=== PATIENT | female | born 1985 | race Caucasian/White ===

== ENCOUNTER 2019-12-14 00:02 | Inpatient (IN) | payer OTHER ==
[~2019-12-14] VITALS: Ht 162.6 cm; Wt 80.3 kg
--- OUTSIDE RECORDS SUMMARY | ~2019-12-14 | XMS | Encounter Summary ---
Demographics + + + | Address | [address] | | | [place] [address] | + + + | Home Phone | | + + + | Preferred Language | Unknown | + + + | Marital Status | | + + + | Shinto Affiliation | Unknown | + + + | Race | Unknown | + + + | Ethnic Group | Unknown | + + + Author + + + | Author | [facility] | | | and [place] | + + + | Organization | [facility] | | | and [place] | + + + | Address | Unknown | + + + | Phone | Unavailable | + + + Support + + +---------+ + | Name | Relationship | Address | Phone | + + +---------+ + | Bina Sierra | ECON | Unknown | | + + +---------+ + Care Team Providers + +------+ + | Care Tapper Balance Wheel Screw Hole Name | Role | Phone | + +------+ + PCP | Unavailable | + +------+ + Encounter Details +--------+ + + + + | Date | Type | Department | Care Team | Description | +--------+ + + + + | 09/03/ | Hospital | [facility] | Diana Cruz MD | | | 2010 | Encounter | [facility] | [address] | | | | | [place] | [place], [place] | | | | | [place], [place] | [address] | | | | | [address] | | | | | | [phone] | | | +--------+ + + + + Social History + +-------+ +--------+------+ | Tobacco Use | Types | Packs/Day | Years | Date | | | | | Used | | + +-------+ +--------+------+ | Never Assessed | | | | | + +-------+ +--------+------+ + + + | Sex Assigned at | Date Recorded | | | | + + + | Not on file | | + + + documented as of this encounter Plan of Treatment Not on filedocumented as of this encounter Visit Diagnoses Not on filedocumented in this encounter"
--- OUTSIDE RECORDS SUMMARY | ~2019-12-14 | XMS | Encounter Summary ---
Demographics + + + | Address | [address] | | | [place] [address] | + + + | Home Phone | | + + + | Preferred Language | Unknown | + + + | Marital Status | | + + + | Protestant Affiliation | Unknown | + + + | Race | Unknown | + + + | Ethnic Group | Unknown | + + + Author + + + | Author | [facility] | | | and [place] | + + + | Organization | [facility] | | | [...] Team Providers + +------+ + | Care Bartender Name | Role | Phone | + +------+ + PCP | Unavailable | + +------+ + Reason for Visit + +--------+ + | Reason | Onset | Comments | | | Date | | + +--------+ + | Medication Refill | 02/27/ | | | | 2017 | | + +--------+ + Encounter Details +--------+--------+ + + + | Date | Type | Department | Care Team | Description | +--------+--------+ + + + | 02/27/ | Refill | [facility] | Irlanda Moise | Medication Refill | | 2016 | | [facility] | [address] | | | | | MED[address] | [address] [facility], | | | | | [facility] [facility], | [place] [address] | | | | | [place] [address] | [phone] | | | | | [phone] | | | +--------+--------+ + + + Social History + +-------+ +--------+------+ | Tobacco Use | Types | Packs/Day | Years | Date | | | | | Used | | + +-------+ +--------+------+ | Never Smoker | | | | | + +-------+ +--------+------+ + + + | Sex Assigned at | Date Recorded | | | | + + + | Not on file | | + + + documented as of this encounter Miscellaneous Notes Telephone Encounter - Rosemarie Doherty NP - 02/27/2017 1:29 PM PDTCan refill for #12. Electr onically signed by Rosemarie Doherty NP at 02/27/2017 1:29 PM PDTTelephone Encounter - Kolby Garcia - 02/27/2017 1:03 PM PDTSunatriptan, pt just received 9 pills due to her insurance and pt does not have insurance and is going to pay for these out of pocket. Pt was asking i f she could have more than 9 pills, pt uses [facility] in [facility] call/robin documented i n this encounter Plan of Treatment Not on filedocumented as of this encounter Visit Diagnoses Not on filedocumented in this encounter"
--- OUTSIDE RECORDS SUMMARY | ~2019-12-14 | XMS | Encounter Summary ---
Demographics + + + | Address | [address] | | | [place] [address] | + + + | Home Phone | | + + + | Preferred Language | Unknown | + + + | Marital Status | | + + + | Adventism Affiliation | Unknown | + + + | Race | Unknown | + + + | Ethnic Group | Unknown | + + + Author + + + | Author | [facility] | | | and [place] | + + + | Organization | [facility] | | | [...] Team Providers + +------+ + | Care Air Conditioner Installer Helper Name | Role | Phone | + +------+ + PCP | Unavailable | + +------+ + Encounter Details +--------+ + + + + | Date | Type | Department | Care Team | Description | +--------+ + + + + | 11/28/ | Hospital | [facility] | Conversion | | | 2011 | Encounter | [facility] | Transaction, | | | | | MED[facility] | Provider Unknown | | | | | [address] [facility], | | | | | | [place] [address] | (Fax) | | | | | [phone] | | | +--------+ + + + [...]
--- OUTSIDE RECORDS SUMMARY | ~2019-12-14 | XMS | Encounter Summary ---
Demographics + + + | Address | [address] | | | [place] [address] | + + + | Home Phone | | + + + | Preferred Language | Unknown | + + + | Marital Status | | + + + | Mandaeism Affiliation | Unknown | + + + | Race | Unknown | + + + | Ethnic Group | Unknown | + + + Author + + + | Author | [facility] | | | and [place] | + + + | Organization | [facility] | | | and [...] Team Providers + +------+ + | Care Tea Room Manager Name | Role | Phone | + +------+ + PCP | Unavailable | + +------+ + Encounter Details +--------+ + + + + | Date | Type | Department | Care Team | Description | +--------+ + + + + | 06/30/ | Hospital | [facility] | Conversion | | | 2009 | Encounter | [facility] | Transaction, | | | | | [address]ENTER [address] | Provider Unknown | | | | | [address] [place], [place] | | | | | | [address] | (Fax) | | | | | [phone] | | | +--------+ + + + [...]
--- OUTSIDE RECORDS SUMMARY | ~2019-12-14 | XMS | Encounter Summary ---
Demographics + + + | Address | [address] | | | [place] [address] | + + + | Home Phone | | + + + | Preferred Language | Unknown | + + + | Marital Status | | + + + | Hoahaoism Affiliation | Unknown | + + + | Race | Unknown | + + + | Ethnic Group | Unknown | + + + Author + + + | Author | [facility] | | | and [place] | + + + | Organization | [facility] | | | [...] Team Providers + +------+ + | Care Financial Aid Director Name | Role | Phone | + +------+ + PCP | Unavailable | + +------+ + Encounter Details +--------+ + + + + | Date | Type | Department | Care Team | Description | +--------+ + + + + | 05/03/ | Hospital | [facility] | Conversion | Chronic back pain | | 2014 | Encounter | [facility] | Transaction, | | | | | [address] | Provider Unknown | | | | | [address] [place], [place] | [phone] | | | | | [address] | | | | | | [phone] | | | +--------+ + + + [...] + + documented as of this encounter Medications at Time of Discharge + + + +---------+ + + | Medication | Sig | Dispensed | Refills | Start | End Date | | | | | | Date | | + + + +---------+ + + | DULoxetine | ORAL; 1 capsule | | 0 | 04/04/20 | | | (CYMBALTA) [address] | daily for one week, | | | 15 | | | capsule | then 1 capsule QOD | | | | | | | for one week, then | | | | | | | d/c | | | | | + + + +---------+ + + | gabapentin | 3 Capsule twice | | 0 | 11/19/19 | | | (NEURONTIN) 300 mg | daily ORAL | | | 15 | | | capsule | | | | | | + + + +---------+ + + | ibuprofen | 1 Tablet 3 times a | | 0 | 01/18/20 | | | (ADVIL,MOTRIN) 800 | day PRN ORAL | | | 15 | | | MG tablet | | | | | | + + + +---------+ + + | methocarbamol | 1 Tablet every 6 | | 0 | 02/25/20 | | | (METHOCARBAMOL) 750 | hours PRN ORAL | | | 15 | | | mg tablet | | | | | | + + + +---------+ + + | Multiple Vitamin | 1 Tablet QD ORAL | | 0 | 08/19/19 | | | (MULTIVITAMINS PO) | | | | 14 | | + + + +---------+ + + | topiramate | ORAL; on 03/13/15 1 | | 0 | 03/14/20 | | | (TOPAMAX) 25 mg | tab at hs for 1 | | | 15 | | | tablet | week-then increase | | | | | | | by 25mg per week up | | | | | | | to 25mg in AM & 50mg | | | | | | | at hs | | | | | + + + +---------+ + + documented as of this encounter Plan of Treatment Not on filedocumented as of this encounter Procedures + +--------+ + + + | Procedure Name | Priori | Date/Time | Associated Diagnosis | Comments | | | ty | | | | + +--------+ + + + | XR LUMBAR SPINE 2 [place] | Routin | 05/03/2015 | | Results for this | | 3 VW | e | 11:56 AM | | procedure are in the | | | | PST | | results section. | + +--------+ + + + documented in this encounter Results XR Lumbar Spine 2 or 3 Vw (05/03/2015 11:56 AM PST) + + | Specimen | + + | | + + + + + | Impressions | Performed At | + + + | FINDINGS/ IMPRESSION: No acute fracture or dislocation. | | | Intervertebral disc height is preserved. Vertebral body height is | | | preserved. No instability on flexion and extension views. | | | | | + + + + + + | Narrative | Performed At | + + + | [facility] 1985 XR LUMBAR SPINE LIMITED 2-3 VIEW | | | 05/03/2015 11:56 AM INDICATION: Back pain COMPARISON: None | | | TECHNIQUE: Lumbar spine series, 3 views | | + + + + + | Procedure Note | + + | Harmeet, Rad Conversion - 12/18/2018 11:21 AM PDT [facility] | | 1985 | | XR LUMBAR SPINE LIMITED 2-3 VIEW | | 05/03/2015 11:56 AM | | | | INDICATION: Back pain | | | | COMPARISON: None | | | | TECHNIQUE: Lumbar spine series, 3 views | | | | IMPRESSION: | | FINDINGS/ IMPRESSION: | | | | No acute fracture or dislocation. | | | | Intervertebral disc height is preserved. Vertebral body height is preserved. | | | | No instability on flexion and extension views. | | | | | + + documented in this encounter Visit Diagnoses + + | Diagnosis | + + | Chronic back pain Backache, unspecified | + + documented in this encounter"
--- OUTSIDE RECORDS SUMMARY | ~2019-12-14 | XMS | Encounter Summary ---
Demographics + + + | Address | [address] | | | [place] [address] | + + + | Home Phone | | + + + | Preferred Language | Unknown | + + + | Marital Status | | + + + | Voodoo Affiliation | Unknown | + + + | Race | Unknown | + + + | Ethnic Group | Unknown | + + + Author + + + | Author | [facility] | | | and [place] | + + + | Organization | [facility] | | | and [...] Team Providers + +------+ + | Care Aerodynamics Teacher Name | Role | Phone | + +------+ + PCP | Unavailable | + +------+ + Encounter Details +--------+ + + + + | Date | Type | Department | Care Team | Description | +--------+ + + + + | 06/12/ | Hospital | [facility] | Diana Cruz MD | | | 2010 | Encounter | [facility] | [address] | | | | | [place] | [place], [place] | | | | | [place], [place] | [address] | | | | | [address] | | | | | | [phone] | | | +--------+ + + + [...]
--- OUTSIDE RECORDS SUMMARY | ~2019-12-14 | XMS | Encounter Summary ---
Demographics + + + | Address | [address] | | | [place] [address] | + + + | Home Phone | | + + + | Preferred Language | Unknown | + + + | Marital Status | | + + + | Voodoo Affiliation | Unknown | + + + | Race | Unknown | + + + | Ethnic Group | Unknown | + + + Author + + + | Author | [facility] | | | and [place] | + + + | Organization | [facility] | | | [...] Team Providers + +------+ + | Care Manager Market Name | Role | Phone | + +------+ + | Irlanda Moise MD | PCP | | + +------+ + Encounter Details +--------+ + + + + | Date | Type | Department | Care Team | Description | +--------+ + + + + | 12/14/ | Orders Only | [facility] | Provider, | | | 2019 | | [facility] GENER[facility] OP | [address] | | | | | CONVERSION [address] | [place] | | | | | [address] [place], [place] | [place] [address] | | | | | [address] | | | | | | [phone] | | | +--------+ + + + [...]
--- OUTSIDE RECORDS SUMMARY | ~2019-12-14 | XMS | Encounter Summary ---
Demographics + + + | Address | [address] | | | [place] [address] | + + + | Home Phone | | + + + | Preferred Language | Unknown | + + + | Marital Status | | + + + | Holiness Affiliation | Unknown | + + + | Race | Unknown | + + + | Ethnic Group | Unknown | + + + Author + + + | Author | [facility] | | | and [place] | + + + | Organization | [facility] | | | [...] Team Providers + +------+ + | Care Gum Maker Name | Role | Phone | + +------+ + PCP | Unavailable | + +------+ + Encounter Details +--------+ + + + + | Date | Type | Department | Care Team | Description | +--------+ + + + + | 10/28/ | Hospital | [facility] | Irlanda Moise | | | 2013 | Encounter | [facility] | [address] | | | | | [address] | [facility] [facility], | | | | | [facility], | [place] [address] | | | | | [place] [address] | [phone] | | | | | [phone] | | | +--------+ + + + [...] Tablet QD ORAL | | 0 | 04/1620 | | | (MULTIVITAMINS PO) | | | | 14 | | + + + +---------+ + + documented as of this encounter Plan of Treatment Not on filedocumented as of this encounter Visit Diagnoses Not on filedocumented in this encounter"
--- OUTSIDE RECORDS SUMMARY | ~2019-12-14 | XMS | Encounter Summary ---
Demographics + + + | Address | [address] | | | [place] [address] | + + + | Home Phone | | + + + | Preferred Language | Unknown | + + + | Marital Status | | + + + | Restorationist Affiliation | Unknown | + + + | Race | Unknown | + + + | Ethnic Group | Unknown | + + + Author + + + | Author | [facility] | | | and [place] | + + + | Organization | [facility] | | | [...] Team Providers + +------+ + | Care Electronic Wirer Name | Role | Phone | + +------+ + PCP | Unavailable | + +------+ + Encounter Details +--------+ + + + + | Date | Type | Department | Care Team | Description | +--------+ + + + + | 08/18/ | Hospital | [facility] | Irlanda Moise | | | 2013 | Encounter | [facility] | [address] | | | | | [address] | [address] [facility], | | | | | [facility] [facility], | [place] [address] | | | | | [place] [address] | [phone] | | | | | [phone] | | | +--------+ + + + [...]
--- OUTSIDE RECORDS SUMMARY | ~2019-12-14 | XMS | Encounter Summary ---
Demographics + + + | Address | [address] | | | [place] [address] | + + + | Home Phone | | + + + | Preferred Language | Unknown | + + + | Marital Status | | + + + | Faith Affiliation | Unknown | + + + | Race | Unknown | + + + | Ethnic Group | Unknown | + + + Author + + + | Author | [facility] | | | and [place] | + + + | Organization | [facility] | | | [...] Team Providers + +------+ + | Care Fashion Patternmaker Name | Role | Phone | + +------+ + PCP | Unavailable | + +------+ + Encounter Details +--------+ + + + + | Date | Type | Department | Care Team | Description | +--------+ + + + + | 06/24/ | Hospital | [facility] | Bashir Rogers | | | 2011 | Encounter | [facility]PITAL EM[facility]Y | [address] | | | | | [address] | [facility] | | | | | [address] [place], [place] | [place] [address] | | | | | [address] | [phone] | | | | | [phone] | | | +--------+ + + + [...]
--- OUTSIDE RECORDS SUMMARY | ~2019-12-14 | XMS | Encounter Summary ---
Demographics + + + | Address | [address] | | | [place] [address] | + + + | Home Phone | | + + + | Preferred Language | Unknown | + + + | Marital Status | | + + + | Lutheran Affiliation | Unknown | + + + | Race | Unknown | + + + | Ethnic Group | Unknown | + + + Author + + + | Author | [facility] | | | and [place] | + + + | Organization | [facility] | | [...] Team Providers + +------+ + | Care Vending Machine Assembler Name | Role | Phone | + +------+ + PCP | Unavailable | + +------+ + Encounter Details +--------+ + + + + | Date | Type | Department | Care Team | Description | +--------+ + + + + | 07/13/ | Hospital | [facility] | Jasmeet Wick | | | 2009 | Encounter | [facility]PITAL EM[facility] | [address] | | | | | [address] | [facility] | | | | | [address] [place], [place] | [place] [address] | | | | | [address] | [phone] | | | | | [phone] | | | +--------+ + + + [...]
--- OUTSIDE RECORDS SUMMARY | ~2019-12-14 | XMS | Encounter Summary ---
Demographics + + + | Address | [address] | | | [place] [address] | + + + | Home Phone | | + + + | Preferred Language | Unknown | + + + | Marital Status | | + + + | Tenriism Affiliation | Unknown | + + + | Race | Unknown | + + + | Ethnic Group | Unknown | + + + Author + + + | Author | [facility] | | | and [place] | + + + | Organization | [facility] | | | and [...] Team Providers + +------+ + | Care Post Partum Nurse Name | Role | Phone | + +------+ + PCP | Unavailable | + +------+ + Encounter Details +--------+ + + + + | Date | Type | Department | Care Team | Description | +--------+ + + + + | 10/12/ | Hospital | [facility] | Conversion | | | 2016 | Encounter | [facility] | Transaction, | | | | | [address] | Provider Unknown | | | | | [address] [place], [place] | [phone] | | | | | [address] | | | | | | [phone] | | | +--------+ + + + [...] + + + +---------+ + + | meloxicam (MOBIC) | Take once a day for | | 0 | 10/13/19 | | | 15 mg tablet | pain | | | 16 | | + + + +---------+ + [...] + + + +---------+ + + | zonisamide | Start 1 capsule by | | 0 | 05/04/20 | | | (ZONEGRAN) 100 mg | mouth at night x 1 | | | 16 | | | capsule | week, then 2 | | | | | | | capsules nightly. | | | | | + + + +---------+ + + documented as of this encounter Plan of Treatment Not on filedocumented as of this encounter Visit Diagnoses Not on filedocumented in this encounter"
--- OUTSIDE RECORDS SUMMARY | ~2019-12-14 | XMS | Encounter Summary ---
Demographics + + + | Address | [address] | | | [place] [address] | + + + | Home Phone | | + + + | Preferred Language | Unknown | + + + | Marital Status | | + + + | Spiritism Affiliation | Unknown | + + + | Race | Unknown | + + + | Ethnic Group | Unknown | + + + Author + + + | Author | [facility] | | | and [place] | + + + | Organization | [facility] | | [...] Team Providers + +------+ + | Care Coordinator Mining Products Name | Role | Phone | + +------+ + PCP | Unavailable | + +------+ + Encounter Details +--------+ + + + + | Date | Type | Department | Care Team | Description | +--------+ + + + + | 01/15/ | Hospital | [facility] | Adiel Slade | | | 2012 | Encounter | [facility] | [address] | | | | | MEDICAL CLIN[address] | [address] [place], [place] | | | | | [address] [place], | [address] | | | | | [place] [address] | | | | | | [phone] | | | +--------+ + + + [...]
--- OUTSIDE RECORDS SUMMARY | ~2019-12-14 | XMS | Encounter Summary ---
Demographics + + + | Address | [address] | | | [place] [address] | + + + | Home Phone | | + + + | Preferred Language | Unknown | + + + | Marital Status | | + + + | Scientologist Affiliation | Unknown | + + + [...] Team Providers + +------+ + | Care Tack Puller Name | Role | Phone | + +------+ + PCP | Unavailable | + +------+ + Encounter Details +--------+ + + + + | Date | Type | Department | Care Team | Description | +--------+ + + + + | 10/01/ | Hospital | [facility] | Irlanda Moise | | | 2013 | Encounter | [facility] | [address] | | | | | MEDICAL [address] | [facility] [facility], | | | | | [facility], | [place] [address] | | | | | [place] [address] | [phone] | | | | | [phone] | | | +--------+ + + + [...]
--- OUTSIDE RECORDS SUMMARY | ~2019-12-14 | XMS | Encounter Summary ---
Demographics + + + | Address | [address] | | | [place] [address] | + + + | Home Phone | | + + + | Preferred Language | Unknown | + + + | Marital Status | | + + + | Faith Affiliation | Unknown | + + + | Race | Unknown | + + + | Ethnic Group | Unknown | + + + Author + + + | Author | [facility] | | | and [place] | + + + | Organization | [facility] | | | and [...] Team Providers + +------+ + | Care Tongue Presser Name | Role | Phone | + +------+ + PCP | Unavailable | + +------+ + Encounter Details +--------+ + + + + | Date | Type | Department | Care Team | Description | +--------+ + + + + | 08/09/ | Hospital | [facility] | Irlanda Moise | | | 2014 | Encounter | [facility] | [address] | | | | | [address]ICAL [address] | [facility] [facility], | | | | | [facility], | [place] [address] | | | | | [place] [address] | [phone] | | | | | [phone] | | | +--------+ + + + [...]
--- OUTSIDE RECORDS SUMMARY | ~2019-12-14 | XMS | Clinical Summary ---
Demographics + + + | Address | [address] | | | [place] [address] | + + + | Home Phone | | + + + | Preferred Language | Unknown | + + + | Marital Status | | + + + | Scientologist Affiliation | Unknown | + + + | Race | Unknown | + + + | Ethnic Group | Unknown | + + + Author + + + | Author | [facility] | | | and [place] | + + + | Organization | [facility] | | | and [...] Team Providers + +------+ + | Care Clinical Professor Name | Role | Phone | + +------+ + | Irlanda Moise MD | PCP | | + +------+ + Allergies + + + + + + | Active Allergy | Reactions | Severity | Noted | Comments | | | | | Date | | + + + + + + | Cyclobenzaprine | Other (See Comments) | Low | 08/11/19 | | | | | | 10 | | + + + + + + | Duloxetine | Other (See Comments) | Low | 04/12/20 | | | | | | 15 | | + + + + + + Medications + + + +---------+------+------+-------+ | Medication | Sig | Dispensed | Refills | Star | End | Statu | | | | | | t | Date | s | | | | | | Date | | | + + + +---------+------+------+-------+ | SUMAtriptan | Take at onset of | 12 | 0 | 10/ | | Activ | | (IMITREX) 50 mg | migraine, may repeat | tablet | | 10/22 | | e | | tablet | in 2 hrs if needed | | | 17 | | | + + + +---------+------+------+-------+ | Multiple Vitamin | 1 Tablet QD ORAL | | 0 | 04/1 | | Activ | | (MULTIVITAMINS PO) | | | | 6/20 | | e | | | | | | 14 | | | + + + +---------+------+------+-------+ | citalopram | 20 mg | | 0 | | | Activ | | (CELEXA) 20 mg | | | | | | e | | tablet | | | | | | | + + + +---------+------+------+-------+ | cloNIDine | Take 1 tablet (0.1 | | 0 | 08/0 | | Activ | | (CATAPRES) 0.1 mg | mg total) by mouth 2 | | | 6/20 | | e | | tablet | times daily | | | 19 | | | + + + +---------+------+------+-------+ | DULoxetine | ORAL; 1 capsule | | 0 | 12/0 | | Activ | | (CYMBALTA) [address] | daily for one week, | | | 1/20 | | e | | capsule | then 1 capsule QOD | | | 15 | | | | | for one week, then | | | | | | | | d/c | | | | | | + + + +---------+------+------+-------+ | gabapentin | Take 1 tablet by | | 0 | 09/2 | | Activ | | (NEURONTIN) 600 MG | mouth 3 (three) | | | 6/20 | | e | | tablet | times daily. | | | 16 | | | + + + +---------+------+------+-------+ | gabapentin | 3 Capsule twice | | 0 | 07/1 | | Activ | | (NEURONTIN) 300 mg | daily ORAL | | | 7/20 | | e | | capsule | | | | 15 | | | + + + +---------+------+------+-------+ | ibuprofen | 1 Tablet 3 times a | | 0 | 09/1 | | Activ | | (ADVIL,MOTRIN) 800 | day PRN ORAL | | | 5/20 | | e | | MG tablet | | | | 15 | | | + + + +---------+------+------+-------+ | LORazepam (ATIVAN) | Take 1 tablet (1 mg | | 0 | 11/2 | | Activ | | 1 mg tablet | total) by mouth at | | | 6/20 | | e | | | bedtime as needed | | | 18 | | | | | for Anxiety | | | | | | + + + +---------+------+------+-------+ | LORazepam (ATIVAN) | Take 2 mg by mouth | | 0 | | | Activ | | 2 MG tablet | | | | | | e | + + + +---------+------+------+-------+ | meloxicam (MOBIC) | Take once a day for | | 0 | 06/1 | | Activ | | 15 mg tablet | pain | | | 0/20 | | e | | | | | | 16 | | | + + + +---------+------+------+-------+ | meloxicam (MOBIC) | Take 7.5 mg by mouth | | 0 | 11/2 | | Activ | | 7.5 mg tablet | daily | | | 20 | | e | | | | | | 18 | | | + + + +---------+------+------+-------+ | methocarbamol | 1 Tablet every 6 | | 0 | 10/2 | | Activ | | (METHOCARBAMOL) 750 | hours PRN ORAL | | | 3/20 | | e | | mg tablet | | | | 15 | | | + + + +---------+------+------+-------+ | metoprolol | Take 0.5 tablets | | 0 | 11/2 | | Activ | | tartrate (LOPRESSOR) | (12.5 mg total) by | | | 6/20 | | e | | 25 mg tablet | mouth 2 times daily | | | 18 | | | + + + +---------+------+------+-------+ | morphine (MSIR) 15 | Take 15 mg by mouth. | | 0 | | | Activ | | mg tablet | Take one tablet by | | | | | e | | | moth twice daily | | | | | | + + + +---------+------+------+-------+ | nabumetone | TAKE ONE TABLET BY | | 0 | 07/0 | | Activ | | (RELAFEN) 750 mg | MOUTH TWO TIMES A | | | 10/22 | | e | | tablet | DAY | | | 16 | | | + + + +---------+------+------+-------+ | | Take 1 tablet by | | 0 | 06/1 | | Activ | | norgestimate-ethinyl | mouth daily | | | 11/21 | | e | | estradiol | | | | 19 | | | | (ORTHO-CYCLEN) 0.25 | | | | | | | | mg-35 mcg per tablet | | | | | | | + + + +---------+------+------+-------+ | ondansetron | Take 1 tablet (4 mg | | 0 | 08/0 | | Activ | | (ZOFRAN ODT) 4 mg | total) by mouth | | | 620 | | e | | disintegrating | every 6 hours as | | | 19 | | | | tablet | needed for Nausea | | | | | | | | (For nausea or | | | | | | | | vomiting) place on | | | | | | | | the tongue. | | | | | | + + + +---------+------+------+-------+ | ondansetron | Take 4 mg by mouth 4 | | 0 | | | Activ | | (ZOFRAN) 4 mg tablet | times daily as | | | | | e | | | needed for Nausea | | | | | | + + + +---------+------+------+-------+ | | Take 1-2 tablets by | | 0 | 01/04 | | Activ | | oxyCODONE-acetaminop | mouth every 4 (four) | | | 6/ | | e | | hen (PERCOCET) | hours as needed for | | | 16 | | | | 7.5-325 mg per | Pain. | | | | | | | tablet | | | | | | | + + + +---------+------+------+-------+ | pantoprazole | Take 40 mg by mouth | | 0 | | | Activ | | (PROTONIX) 40 mg | | | | | | e | | tablet | | | | | | | + + + +---------+------+------+-------+ | topiramate | ORAL; on 03/13/15 1 | | 0 | 11 | | Activ | | (TOPAMAX) 25 mg | tab at hs for 1 | | | 0/20 | | e | | tablet | week-then increase | | | 15 | | | | | by 25mg per week up | | | | | | | | to 25mg in AM & 50mg | | | | | | | | at hs | | | | | | + + + +---------+------+------+-------+ | topiramate | Take 1 pill twice a | | 0 | 08/2 | | Activ | | (TOPAMAX) 100 mg | day. | | | 620 | | e | | tablet | | | | 16 | | | + + + +---------+------+------+-------+ | zonisamide | Start 1 capsule by | | 0 | 05/0 | | Activ | | (ZONEGRAN) 100 mg | mouth at night x 1 | | | 4/20 | | e | | capsule | week, then 2 | | | 16 | | | | | capsules nightly. | | | | | | + + + +---------+------+------+-------+ | SUMAtriptan | ORAL; TAKE AT ONSET | | 0 | 10/1 | | Activ | | (IMITREX) 50 mg | OF MIGRAINE, MAY | | | 0/20 | | e | | tablet | REPEAT IN 2 HOURS IF | | | 16 | | | | | NEEDED | | | | | | + + + +---------+------+------+-------+ | SUMAtriptan | Take 100 mg by mouth | | 0 | 02/2 | | Activ | | (IMITREX) 100 mg | | | | 0/20 | | e | | tablet | | | | 17 | | | + + + +---------+------+------+-------+ Active Problems + + + | Problem | Noted Date | + + + | Left hip pain | 08/10/2015 | + + + | Arthralgia, sacroiliac | 05/29/2015 | + + + | Tobacco use disorder | 12/02/2013 | + + + | Chronic back pain | 08/18/2013 | + + + | Migraine | 08/18/2013 | + + + | Exudative pharyngitis | 11/29/2011 | + + + Family History + + +------+ + | Medical History | Relation | Name | Comments | + + +------+ + | Fibromyalgia | Maternal | | | | | Grandmoth | | | | | er | | | + + +------+ + | Fibromyalgia | Mother | | | + + +------+ + + +------+--------+ + | Relation | Name | Status | Comments | + +------+--------+ + | Father | | Alive | | + +------+--------+ + | Maternal Grandmother | | Alive | | + +------+--------+ + | Maternal Grandmother | | | | + +------+--------+ + | Mother | | Alive | | + +------+--------+ + | Mother | | | | + +------+--------+ + Social History + +-------+ +--------+------+ | Tobacco Use | Types | Packs/Day | Years | Date | | | | | Used | | + +-------+ +--------+------+ | Current Every Day | | 0.1 | | | | Smoker | | | | | + +-------+ +--------+------+ + +---+---+---+ | Smokeless Tobacco: | | | | | Never Used | | | | + +---+---+---+ + + +---------+ + | Alcohol Use | Drinks/Week | oz/Week | Comments | + + +---------+ + | Not Currently | | | | + + +---------+ + + + + | Sex Assigned at | Date Recorded | | | | + + + | Not on file | | + + + Last Filed Vital Signs + + + + + | Vital Sign | Reading | Time Taken | Comments | + + + + + | Blood Pressure | 114/65 | 02/18/2019 4:36 PM | | | | | PDT | | + + + + + | Pulse | 82 | 02/18/2019 4:36 PM | | | | | PDT | | + + + + + | Temperature | 37.4 C (99.4 F) | 02/18/2019 4:36 PM | | | | | PDT | | + + + + + | Respiratory Rate | 18 | 02/18/2019 4:36 PM | | | | | PDT | | + + + + + | Oxygen Saturation | 99% | 02/18/2019 4:36 PM | | | | | PDT | | + + + + + | Inhaled Oxygen | - | - | | | Concentration | | | | + + + + + | Weight | 61.2 kg (135 lb) | 02/18/2019 4:36 PM | | | | | PDT | | + + + + + | Height | 162.6 cm (5' 4") | 09/26/2016 11:50 AM | | | | | PDT | | + + + + + | Body Mass Index | 23.17 | 09/26/2016 11:50 AM | | | | | PDT | | + + + + + Plan of Treatment + + + + + | Health Maintenance | Due Date | Last | Comments | | | | Done | | + + + + + | Hepatitis C | | | | | Screening | 4 | | | + + + + + | Medication | | | | | Management | 4 | | | + + + + + | Primary Care | | | | | Outreach (Low Risk) | 4 | | | + + + + + | Vaccine: | | | | | Pneumococcal 19-64 | 0 | | | | (1 of 1 - PPSV23) | | | | + + + + + | Vaccine: | | 04/27/20 | | | Dtap/Tdap/Td (5 - | 5 | 18, | | | Tdap) | | 01/04/19 | | | | | 88, | | | | | 01/31/19 | | | | | 86, | | | | | Addition | | | | | al | | | | | history | | | | | exists | | + + + + + | Cervical Cancer | | | | | Screening (Pap) | 4 | | | + + + + + | Med Mgmt: BUN | | 08/10/19 | | | | 6 | 15 | | + + + + + | Med Mgmt: Cr | | 08/10/19 | | | | 6 | 15 | | + + + + + | Med Mgmt: eGFR | | 08/10/19 | | | | 6 | 15 | | + + + + + | Vaccine: Influenza | | | | | (#1) | 0 | | | + + + + + Results Not on filefrom Last 3 Months Insurance + +--------+ +--------+ +---------+--------+ | Payer | Benefi | Subscriber | Effect | Phone | Address | Type | | | t Plan | ID | alonzo | | | | | | / | | Dates | | | | | | Group | | | | | | + +--------+ +--------+ +---------+--------+ | [employer] | [employer] | [id number] | 02/18/ | [phone] | | Medica | | MEDICAID HMO | HEALTH | | 2019-P | 1 | | id | | | MDCD | | resent | | | | | | [place] | | | | | | + +--------+ +--------+ +---------+--------+ + +--------+ +--------+ + + | Guarantor Name | Accoun | Relation to | Date | Phone | Billing Address | | | t Type | Patient | of | | | | | | | | | | + +--------+ +--------+ + + | Valentina Sierra | Person | Self | [birth year] | [address] | | | al/Fam | | 1986 | [phone] | [place] [address] | | | jelani | | | 0 (Home) | | + +--------+ +--------+ + + Advance Directives + + + + + | Type | Date Recorded | Patient | Explanation | | | | Solo Truck Driver | | + + + + + | Power of | | | | | Cyber Special Agent | | | | + + + + + | Advance | 02/18/2019 | | | | Directive | 5:34 PM | | | + + + + +
--- OUTSIDE RECORDS SUMMARY | ~2019-12-14 | XMS | Encounter Summary ---
Demographics + + + | Address | [address] | | | [place] [address] | + + + | Home Phone | | + + + | Preferred Language | Unknown | + + + | Marital Status | | + + + | Bahai Affiliation | Unknown | + + + | Race | Unknown | + + + | Ethnic Group | Unknown | + + + Author + + + | Author | [facility] | | | and [place] | + + + | Organization | [facility] | | | [...] Team Providers + +------+ + | Care Networks Computer Consultant Name | Role | Phone | + +------+ + | Irlanda Moise MD | PCP | | + +------+ + Reason for Visit +--------+--------+ + | Reason | Onset | Comments | | | Date | | +--------+--------+ + | Letter | 03/12/ | | | | 2019 | | +--------+--------+ + Encounter Details +--------+ + + + + | Date | Type | Department | Care Team | Description | +--------+ + + + + | 03/12/ | Telephone | [facility] | Jose Maria Irlanda | Letter | | 2019 | | [facility] | MD [address] | | | | | [facility] [address] [place], | | | | | [address] [facility], | [place] [address] | | | | | [place] [address] | [phone] | | | | | [phone] | | | +--------+ + + + [...] this encounter Miscellaneous Notes Telephone Encounter - Verónica Aguilar LPN - 03/12/2019 4:18 PM PSTPatient notified, no letter until she reestablishes as a patient. Verónica Aguilar LPN elephone Encount edgar - Irlanda Moise MD - 03/12/2019 3:59 PM PSTAbsolutely not. Will need to be seen, and since it's been 4 years, they'll probably make her establish like a new patient (longer wait). elephone Encounter - Verónica Aguilar LPN - 03/12/2019 3:08 PM PSTYou last saw this patient 08-09-14, can you write the letter for deaf teacher dog ? elephone Encounter - Rika Chavez - 03/12/2019 2:33 PM PSTPatient is requesting an updated letter stating she can have her dog in her duplex. Call if any questions otherwise mail to patient at: [address] [address] Call if any questions Rika Chavez documented in this encou nter Plan of Treatment Not on filedocumented as of this encounter Visit Diagnoses Not on filedocumented in this encounter"
--- OUTSIDE RECORDS SUMMARY | ~2019-12-14 | XMS | Encounter Summary ---
Demographics + + + | Address | [address] | | | [place] [address] | + + + | Home Phone | | + + + | Preferred Language | Unknown | + + + | Marital Status | | + + + | Baptist Affiliation | Unknown | + + + | Race | Unknown | + + + | Ethnic Group | Unknown | + + + Author + + + | Author | [facility] | | | and [place] | + + + | Organization | [facility] | | | [...] Team Providers + +------+ + | Care Curriculum Assistant Principal Name | Role | Phone | + +------+ + PCP | Unavailable | + +------+ + Encounter Details +--------+ + + + + | Date | Type | Department | Care Team | Description | +--------+ + + + + | 09/05/ | Hospital | [facility] | Conversion | | | 2016 | Encounter | [facility] | Transaction, | | | | | [address] | Provider Unknown | | | | | [address] [place], [place] | [phone] | | | | | [address] | | | | | | [phone] | | | +--------+ + + + [...]
--- OUTSIDE RECORDS SUMMARY | ~2019-12-14 | XMS | Encounter Summary ---
Demographics + + + | Address | [address] | | | [place] [address] | + + + | Home Phone | | + + + | Preferred Language | Unknown | + + + | Marital Status | | + + + | Uatsdin Affiliation | Unknown | + + + | Race | Unknown | + + + | Ethnic Group | Unknown | + + + Author + + + | Author | [facility] | | | and [place] | + + + | Organization | [facility] | | | and [place] | + + + | Address | Unknown | + + + | Phone | Unavailable | + + + Support + + +---------+ + | Name | Relationship | Address | Phone | + + +---------+ + | Bina Seirra | ECON | Unknown | | + + +---------+ + Care Team Providers + +------+ + | Care Sledger Name | Role | Phone | + +------+ + PCP | Unavailable | + +------+ + Encounter Details +--------+ + + + + | Date | Type | Department | Care Team | Description | +--------+ + + + + | 08/18/ | Hospital | [facility] | Irlanda Moise | | | 2013 | Encounter | [facility] X[facility] [address] | [address] | | | | | [address] | [address] [facility], | | | | | [facility], [place] | [place] [address] | | | | | [address] | [phone] | | | | | [phone] | | | +--------+ + + + [...]
--- OUTSIDE RECORDS SUMMARY | ~2019-12-14 | XMS | Encounter Summary ---
Demographics + + + | Address | [address] | | | [place] [address] | + + + | Home Phone | | + + + | Preferred Language | Unknown | + + + | Marital Status | | + + + | Pentecostalism Affiliation | Unknown | + + + | Race | Unknown | + + + | Ethnic Group | Unknown | + + + Author + + + | Author | [facility] | | | and [place] | + + + | Organization | [facility] | | | [...] Team Providers + +------+ + | Care Booth Cleaner Name | Role | Phone | + +------+ + PCP | Unavailable | + +------+ + Encounter Details +--------+ + + + + | Date | Type | Department | Care Team | Description | +--------+ + + + + | 08/07/ | Hospital | [facility] | Diana Cruz MD | | | 2010 | Encounter | HOSPITAL LABORATORY | [address] | | | | | [address] | [place], [place] | | | | | [place], [place] | [address] | | | | | [address] | | | | | | [phone] | | | +--------+ + + + [...]
--- OUTSIDE RECORDS SUMMARY | ~2019-12-14 | XMS | Encounter Summary ---
Demographics + + + | Address | [address] | | | [place] [address] | + + + | Home Phone | | + + + | Preferred Language | Unknown | + + + | Marital Status | | + + + | Oriental Orthodox Affiliation | Unknown | + + + | Race | Unknown | + + + | Ethnic Group | Unknown | + + + Author + + + | Author | [facility] | | | and [place] | + + + | Organization | [facility] | | | [...] Team Providers + +------+ + | Care Agent Telegrapher Name | Role | Phone | + +------+ + PCP | Unavailable | + +------+ + Encounter Details +--------+ + + + + | Date | Type | Department | Care Team | Description | +--------+ + + + + | 05/15/ | Hospital | [facility] | Diana Cruz MD | | | 2010 | Encounter | HOSPITAL LAB[facility]ATORY | [address] | | | | | [address] | [place], [place] | | | | | [place], [place] | [address] | | | | | [address] | | | | | | [phone] | | | +--------+ + + + [...]
--- OUTSIDE RECORDS SUMMARY | ~2019-12-14 | XMS | Encounter Summary ---
Demographics + + + | Address | [address] | | | [place] [address] | + + + | Home Phone | | + + + | Preferred Language | Unknown | + + + | Marital Status | | + + + | Mormonism Affiliation | Unknown | + + + [...] Team Providers + +------+ + | Care District Scout Executive Name | Role | Phone | + +------+ + PCP | Unavailable | + +------+ + Encounter Details +--------+ + + + + | Date | Type | Department | Care Team | Description | +--------+ + + + + | 08/08/ | Hospital | [facility] | Conversion | | | 2009 | Encounter | HOSPITAL EMERGENCY | Transaction, | | | | | CENTER [address] | Provider Unknown | | | | | [address] [place], [place] | | | | | | [address] | (Fax) | | | | | [phone] | | | +--------+ + + + [...]
--- OUTSIDE RECORDS SUMMARY | ~2019-12-14 | XMS | Encounter Summary ---
Demographics + + + | Address | [address] | | | [place] [address] | + + + | Home Phone | | + + + | Preferred Language | Unknown | + + + | Marital Status | | + + + | Taoist Affiliation | Unknown | + + + | Race | Unknown | + + + | Ethnic Group | Unknown | + + + Author + + + | Author | [facility] | | | and [place] | + + + | Organization | [facility] | | | [...] Team Providers + +------+ + | Care Supervisor Order Takers Name | Role | Phone | + +------+ + PCP | Unavailable | + +------+ + Encounter Details +--------+ + + + + | Date | Type | Department | Care Team | Description | +--------+ + + + + | 08/18/ | Hospital | [facility] | Diana Cruz MD | | | 2009 | Encounter | [facility] X[facility] | [address] | | | | | [address] | [place], [place] | | | | | [place], [place] | [address] | | | | | [address] | | | | | | [phone] | | | +--------+ + + + [...]
--- OUTSIDE RECORDS SUMMARY | ~2019-12-14 | XMS | Encounter Summary ---
Demographics + + + | Address | [address] | | | [place] [address] | + + + | Home Phone | | + + + | Preferred Language | Unknown | + + + | Marital Status | | + + + | Hinduism Affiliation | Unknown | + + + [...] Team Providers + +------+ + | Care Production Metal Sprayer Name | Role | Phone | + +------+ + PCP | Unavailable | + +------+ + Encounter Details +--------+ + + + + | Date | Type | Department | Care Team | Description | +--------+ + + + + | 07/01/ | Hospital | [facility] | [facility], | | | 2011 | Encounter | [facility] | [address], | | | | | [address] | [address] [place], [place] | | | | | [place], [place] | [address] | | | | | [address] | [phone] | | | | | [phone] | | | +--------+ + + + [...]
--- OUTSIDE RECORDS SUMMARY | ~2019-12-14 | XMS | Encounter Summary ---
Demographics + + + | Address | [address] | | | [place] [address] | + + + | Home Phone | | + + + | Preferred Language | Unknown | + + + | Marital Status | | + + + | Restoration Affiliation | Unknown | + + + | Race | Unknown | + + + | Ethnic Group | Unknown | + + + Author + + + | Author | [facility] | | | and [place] | + + + | Organization | [facility] | | | [...] Team Providers + +------+ + | Care Printing Machinist Name | Role | Phone | + +------+ + PCP | Unavailable | + +------+ + Encounter Details +--------+ + + + + | Date | Type | Department | Care Team | Description | +--------+ + + + + | 09/26/ | Hospital | [facility] | Diana Cruz MD | | | 2010 | Encounter | HOSPITAL OBSTETRICS | [address] | | | | | [address] | [place], [place] | | | | | [place], [place] | [address] | | | | | [address] | | | | | | [phone] | | | +--------+ + + + [...] + + documented as of this encounter Progress Notes Diana Cruz MD - 09/26/2010 1:54 PM [facility] Dictating Practitioner: DIANA CRUZ MD Patient Name: PARISH NAVARRETE Patient Date of : 1985 Visit Number: [id number] PROCEDURE NOTE DATE OF SERVICE: September 27, 2010. PROCEDURE PERFORMED: Nonstress test. CHIEF COMPLAINT: Possible rupture of membranes. HISTORY OF PRESENT ILLNESS: This patient is a 24-year-old female, 3, para 2, who presents at 35 weeks gestation with a complaint of possible rupture of membranes, i.e., she noted some watery vaginal discharge that ran down her leg and came immediately to the hospital. She has rare contractions, no bleeding, fever, abdominal trauma, or any other complaints. For her past medical history, history, medications, review of systems and allergies, please see records. PHYSICAL EXAM: VITAL SIGNS: Blood pressure 134/66, temperature 98.7, pulse 108, respirations 16. ABDOMEN:Soft and nontender. Reassuring heart rate. No contractions noted. PROCEDURE: fibronectin acquired and cervix is examined by me. There is no obvious amniotic fluid seen. The cervix is long, closed, and ballotable. DISCHARGE SUMMARY: The patient was discharged. Her AmniSure was negative. She had no contractions and no further evidence of rupture of membranes or labor. She is discharged with instructions and followup. I examined the patient. Cc:?? [id number] / [id number] Dictation Date/Time: September 27, 2010 11:05AM Insurance Special Agent Date/Time: October 02, 2010 10:32AM Authenticated and Edited by Diana Cruz MD On 10/03/10 4:44:22 PM I[facility] Signed and Approved by: DIANA CRUZ MD 10/03/2010 16:44:00 documented in this enc ounter Plan of Treatment Not on filedocumented as of this encounter Visit Diagnoses Not on filedocumented in this encounter"
--- OUTSIDE RECORDS SUMMARY | ~2019-12-14 | XMS | Encounter Summary ---
Demographics + + + | Address | [address] | | | [place] [address] | + + + | Home Phone | | + + + | Preferred Language | Unknown | + + + | Marital Status | | + + + | Judaism Affiliation | Unknown | + + + | Race | Unknown | + + + | Ethnic Group | Unknown | + + + Author + + + | Author | [facility] | | | and [place] | + + + | Organization | [facility] | | [...] Providers + +------+ + | Care Supervisor Cell Room Name | Role | Phone | + +------+ + PCP | Unavailable | + +------+ + Encounter Details +--------+ + + + + | Date | Type | Department | Care Team | Description | +--------+ + + + + | 12/02/ | Hospital | [facility] | Diana Cruz MD | | | 2013 | Encounter | HOSPITAL OBSTETRICS | [address] | | | | | [address] | [place], [place] | | | | | [place], [place] | [address] | | | | | [address] | | | | | | [phone] | | | +--------+ + + + [...]
--- OUTSIDE RECORDS SUMMARY | ~2019-12-14 | XMS | Encounter Summary ---
Demographics + + + | Address | [address] | | | [place] [address] | + + + | Home Phone | | + + + | Preferred Language | Unknown | + + + | Marital Status | | + + + | Judaism Affiliation | Unknown | + + + | Race | Unknown | + + + | Ethnic Group | Unknown | + + + Author + + + | Author | [facility] | | | and [place] | + + + | Organization | [facility] | | [...] Team Providers + +------+ + | Care Wood Preserving Plant Laborer Name | Role | Phone | + +------+ + PCP | Unavailable | + +------+ + Encounter Details +--------+ + + + + | Date | Type | Department | Care Team | Description | +--------+ + + + + | 10/02/ | Hospital | [facility] | Diana Cruz MD | | | 2010 | Encounter | [facility] | [address] [place] [address] | | | | | [address] [place] | [place], [place] | | | | | [place], [place] | [address] | | | | | [address] | | | | | | [phone] | | | +--------+ + + + [...]
--- OUTSIDE RECORDS SUMMARY | ~2019-12-14 | XMS | Encounter Summary ---
Demographics + + + | Address | [address] | | | [place] [address] | + + + | Home Phone | | + + + | Preferred Language | Unknown | + + + | Marital Status | | + + + | Anabaptism Affiliation | Unknown | + + + [...] Team Providers + +------+ + | Care Small Order Cutter Name | Role | Phone | + +------+ + PCP | Unavailable | + +------+ + Encounter Details +--------+ + + + + | Date | Type | Department | Care Team | Description | +--------+ + + + + | 07/29/ | Hospital | [facility] | Se[facility] Man[facility]ana[facility], | | | 2011 | Encounter | [facility] | [address], | | | | | [address] | [place], [place] | | | | | [place], [place] | [address] | | | | | [address] | [phone] | | | | | [phone] | | | +--------+ + + + [...]
--- OUTSIDE RECORDS SUMMARY | ~2019-12-14 | XMS | Encounter Summary ---
Demographics + + + | Address | [address] | | | [place] [address] | + + + | Home Phone | | + + + | Preferred Language | Unknown | + + + | Marital Status | | + + + | Taoist Affiliation | Unknown | + + + | Race | Unknown | + + + | Ethnic Group | Unknown | + + + Author + + + | Author | [facility] | | | and [place] | + + + | Organization | [facility] | | [...] Team Providers + +------+ + | Care Admitted Attorneys Name | Role | Phone | + +------+ + PCP | Unavailable | + +------+ + Encounter Details +--------+ + + + + | Date | Type | Department | Care Team | Description | +--------+ + + + + | 04/16/ | Hospital | [facility] | Puma Todd | | | 2008 | Encounter | [facility] | [address] | | | | | [address] | [address] | | | | | [address] [place], [place] | [place] [address] | | | | | [address] | [phone] | | | | | [phone] | | | +--------+ + + + [...]
--- OUTSIDE RECORDS SUMMARY | ~2019-12-14 | XMS | Encounter Summary ---
Demographics + + + | Address | [address] | | | [place] [address] | + + + | Home Phone | | + + + | Preferred Language | Unknown | + + + | Marital Status | | + + + | Judaism Affiliation | Unknown | + + + | Race | Unknown | + + + | Ethnic Group | Unknown | + + + Author + + + | Author | [facility] | | | and [place] | + + + | Organization | [facility] | | | [...] Team Providers + +------+ + | Care Fruit Harvester Name | Role | Phone | + +------+ + PCP | Unavailable | + +------+ + Encounter Details +--------+ + + + + | Date | Type | Department | Care Team | Description | +--------+ + + + + | 07/14/ | Hospital | [facility] | [facility], | | | 2011 | Encounter | [facility] | [address], | | | | | [address] | [place], [place] | | | | | [place], [place] | [address] | | | | | [address] | [phone] | | | | | [phone] | | | +--------+ + + + [...]
--- OUTSIDE RECORDS SUMMARY | ~2019-12-14 | XMS | Encounter Summary ---
Demographics + + + | Address | [address] | | | [place] [address] | + + + | Home Phone [...] Team Providers + +------+ + | Care Extrusion Die Corrector Name | Role | Phone | + +------+ + PCP | Unavailable | + +------+ + Encounter Details +--------+ + + + + | Date | Type | Department | Care Team | Description | +--------+ + + + + | 08/10/ | Hospital | [facility] | Diana Cruz MD | | | 2009 | Encounter | [facility] | [address] | | | | | [address] [place] | [place], [place] | | | | | [place], [place] | [address] | | | | | [address] | | | | | | [phone] | | | +--------+ + + + [...]
--- OUTSIDE RECORDS SUMMARY | ~2019-12-14 | XMS | Encounter Summary ---
Demographics + + + | Address | [address] | | | [place] [address] | + + + | Home Phone | | + + + | Preferred Language | Unknown | + + + | Marital Status | | + + + | Christianity Affiliation | Unknown | + + + | Race | Unknown | + + + | Ethnic Group | Unknown | + + + Author + + + | Author | [facility] | | | and [place] | + + + | Organization | [facility] | | | and [...] Providers + +------+ + | Care Supervisor Plate Forming Name | Role | Phone | + +------+ + PCP | Unavailable | + +------+ + Encounter Details +--------+ + + + + | Date | Type | Department | Care Team | Description | +--------+ + + + + | 08/09/ | Hospital | [facility] | Irlanda Moise | | | 2014 | Encounter | [facility] | [address] | | | | | [address] [place] | [facility], | | | | | [facility], [place] | [place] [address] | | | | | [address] | [phone] | | | | | [phone] | | | +--------+ + + + [...] | + +--------+ + + + | CBC W/AUTO | Routin | 08/09/2014 | | Results for this | | DIFFERENTIAL | e | 12:04 PM | | procedure are in the | | | | PDT | | results section. | + +--------+ + + + | COMPREHENSIVE | Routin | 08/09/2014 | | Results for this | | METABOLIC PANEL | e | 12:04 PM | | procedure are in the | | | | PDT | | results section. | + +--------+ + + + documented in this encounter Results Comprehensive Metabolic Panel (08/09/2014 12:04 PM PDT) + +-------+ + + + | Component | Value | Ref Range | Performed | Pathologist | | | | | At | Signature | + +-------+ + + + | Sodium | 139 | 132 - 143 | EXTERNAL | | | | | mmol/L | LAB | | + +-------+ + + + | Potassium | 4 | 3.3 - 4.9 | EXTERNAL | | | | | mmol/L | LAB | | + +-------+ + + + | Cl | 106 | 95 - 108 mmol/L | EXTERNAL | | | | | | LAB | | + +-------+ + + + | CO2 | 28 | 23 - 34 mmol/L | EXTERNAL | | | | | | LAB | | + +-------+ + + + | Anion Gap | 5 | 7 - 16 | EXTERNAL | | | | | | LAB | | + +-------+ + + + | Calcium | 9 | 8.3 - 10.0 | EXTERNAL | | | | | mg/dL | LAB | | + +-------+ + + + | Glucose | 122 | 70 - 110 mg/dL | EXTERNAL | | | | | | LAB | | + +-------+ + + + | BUN, Bld | 9 | 5 - 26 mg/dL | EXTERNAL | | | | | | LAB | | + +-------+ + + + | Creatinine | 0.8 | 0.6 - 1.3 mg/dL | EXTERNAL | | | | | | LAB | | + +-------+ + + + | BUN/Creatin | 11.3 | 7.0 - 24.0 | EXTERNAL | | | ine Ratio | | RATIO | LAB | | + +-------+ + + + | GFR | 60 | >=60 | EXTERNAL | | | ESTIMATE | | mL/min/1.73m2 | LAB | | | (REF) | | | | | + +-------+ + + + | Bilirubin, | 0.3 | <=1.2 mg/dL | EXTERNAL | | | Total | | | LAB | | + +-------+ + + + | Protein, | 7.2 | 6.6 - 8.5 g/dL | EXTERNAL | | | Total | | | LAB | | + +-------+ + + + | Albumin | 3.8 | 3.0 - 4.5 g/dL | EXTERNAL | | | | | | LAB | | + +-------+ + + + | Alkaline | 69 | 46 - 116 U/L | EXTERNAL | | | Phosphatase | | | LAB | | + +-------+ + + + | ALT, | 31 | 14 - 59 U/L | EXTERNAL | | | External | | | LAB | | + +-------+ + + + | AST, | 19 | <=38 U/L | EXTERNAL | | | External | | | LAB | | + +-------+ + + + + + | Specimen | + + | | + + + +---------+ + + | Performing | Address | City/State/Zipcode | Phone Number | | Organization | | | | + +---------+ + + | EXTERNAL LAB | | | | + +---------+ + + CBC w/ Auto Differential (08/09/2014 12:04 PM PDT) + + + + + + | Component | Value | Ref Range | Performed | Pathologist | | | | | At | Signature | + + + + + + | WBC | 4 | 4.3 - 10.4 | EXTERNAL | | | | | 1000/mm3 | LAB | | + + + + + + | RBC | 4.26 | 4.12 - 5.30 | EXTERNAL | | | | | mil/mm3 | LAB | | + + + + + + | HGB, | 12.8 | 12.4 - 15.7 | EXTERNAL | | | External | | g/dL | LAB | | + + + + + + | HCT, | 39.1 | 37.7 - 47.0 % | EXTERNAL | | | External | | | LAB | | + + + + + + | MCV | 92 | 82 - 97 fl | EXTERNAL | | | | | | LAB | | + + + + + + | MCH | 30 | 27.1 - 32.3 pg | EXTERNAL | | | | | | LAB | | + + + + + + | MCHC | 32.7 | 32.0 - 36.9 | EXTERNAL | | | | | g/dL | LAB | | + + + + + + | RDW-CV | 12.5 | <=17.0 % | EXTERNAL | | | | | | LAB | | + + + + + + | RDW-SD | 41.3 | 34.0 - 57.0 fL | EXTERNAL | | | | | | LAB | | + + + + + + | Platelet | 176 | 150 - 450 | EXTERNAL | | | Count | | 1000/mm3 | LAB | | | Plasma | | | | | + + + + + + | MPV | 11.1 | 9.4 - 12.3 FL | EXTERNAL | | | | | | LAB | | + + + + + + | % Segmented | 67.1 | 42.0 - 76.0 % | EXTERNAL | | | | | | LAB | | | Neutrophils | | | | | + + + + + + | % | 25.6 | 20.0 - 40.0 % | EXTERNAL | | | Lymphocytes | | | LAB | | + + + + + + | % Monocytes | 5.5 | 3.0 - 13.0 % | EXTERNAL | | | | | | LAB | | + + + + + + | % | 1.3 | 0.0 - 7.0 % | EXTERNAL | | | Eosinophils | | | LAB | | + + + + + + | % Basophils | 0.5 | 0.0 - 2.0 % | EXTERNAL | | | | | | LAB | | + + + + + + | Absolute | 2.67 | 2.50 - 8.50 | EXTERNAL | | | Neutrophils | | 1000/mm3 | LAB | | + + + + + + | Absolute | 1.02 | 1.00 - 3.80 | EXTERNAL | | | Lymphocytes | | 1000/mm3 | LAB | | + + + + + + | Absolute | 0.22 | 0.00 - 0.80 | EXTERNAL | | | Monocytes | | 1000/mm3 | LAB | | + + + + + + | Absolute | 0.05 | 0.00 - 0.70 | EXTERNAL | | | Eosinophils | | 1000/mm3 | LAB | | + + + + + + | Absolute | 0.02 | 0.00 - 0.20 | EXTERNAL | | | Basophils | | 1000/mm3 | LAB | | + + + + + + | SLIDE | SMEAR REVIEWED | | EXTERNAL | | | REVIEWED | | | LAB | | + + + + + + + + | Specimen | + + | | + + + +---------+ + + | Performing | Address | City/State/Zipcode | Phone Number | | Organization | | | | + +---------+ + + | EXTERNAL LAB | | | | + +---------+ + + documented in this encounter Visit Diagnoses Not on filedocumented in this encounter"
--- OUTSIDE RECORDS SUMMARY | ~2019-12-14 | XMS | Encounter Summary ---
Demographics + + + | Address | [address] | | | [place] [address] | + + + | Home Phone | | + + + | Preferred Language | Unknown | + + + | Marital Status | | + + + | Yazidism Affiliation | Unknown | + + + | Race | Unknown | + + + | Ethnic Group | Unknown | + + + Author + + + | Author | [facility] | | | and [place] | + + + | Organization | [facility] | | | [...] Providers + +------+ + | Care Manager Mechanical Maintenance Name | Role | Phone | + +------+ + | Irlanda Moise MD | PCP | | + +------+ + Reason for Visit + + + | Reason | Comments | + + + | Otalgia | | + + + | Nasal Congestion | | + + + Encounter Details +--------+ + + + + | Date | Type | Department | Care Team | Description | +--------+ + + + + | 02/18/ | Emergency | [facility] | Ed Delvalle MD | Sinusitis, | | 2019 | | [facility] | [address] | unspecified | | | | CENTER [address] | [place] | chronicity, | | | | [place], [place] | [address] | unspecified location | | | | [address] | | (Primary Dx) | | | | [phone] | | | +--------+ + + + [...] + + documented as of this encounter Last Filed Vital Signs + + + [...] + + + + | Height | - | - | | + + + + + | Body Mass Index | 23.17 | 09/26/2016 11:50 AM | | | | | PDT | | + + + + + documented in this encounter Discharge Instructions Instructions Ed Delvalle MD - 02/18/2019Follow-up with your primary care provider. Retur n for worsening symptoms. AttachmentsThe following attachments cannot be sent through Care Everywhere.Sinusitis, Self -Care for (Dominican)Amoxicillin; Clavulanic Acid chewable tablets (Dominican)documented in thi s encounter Medications at Time of Discharge + + + +---------+ + + | Medication | Sig | Dispensed | Refills | Start | End Date | | | | | | Date | | + + + +---------+ + + | citalopram | 20 mg | | 0 | | | | (CELEXA) 20 mg | | | | | | | tablet | | | | | | + + + +---------+ + + | cloNIDine | Take 1 tablet (0.1 | | 0 | 12/09/19 | | | (CATAPRES) 0.1 mg | mg total) by mouth 2 | | | 19 | | | tablet | times daily | | | | | + + [...] + +---------+ + + | gabapentin | Take 1 tablet by | | 0 | 01/29/20 | | | (NEURONTIN) 600 MG | mouth 3 (three) | | | 16 | | | tablet | times daily. | | | | | + + + +---------+ + + | ibuprofen | 1 Tablet 3 times a | | 0 | 01/18/20 | | | (ADVIL,MOTRIN) 800 | day PRN ORAL | | | 15 | | | MG tablet | | | | | | + + + +---------+ + + | LORazepam (ATIVAN) | Take 1 tablet (1 mg | | 0 | 03/30/20 | | | 1 mg tablet | total) by mouth at | | | 18 | | | | bedtime as needed | | | | | | | for Anxiety | | | | | + + + +---------+ + + | LORazepam (ATIVAN) | Take 2 mg by mouth | | 0 | | | | 2 MG tablet | | | | | | + + + +---------+ + + | meloxicam (MOBIC) | Take once a day for | | 0 | 10/13/19 | | | 15 mg tablet | pain | | | 16 | | + + + +---------+ + + | meloxicam (MOBIC) | Take 7.5 mg by mouth | | 0 | 03/31/20 | | | 7.5 mg tablet | daily | | | 18 | | + + + +---------+ + + | methocarbamol | 1 Tablet every 6 | | 0 | 02/25/20 | | | (METHOCARBAMOL) 750 | hours PRN ORAL | | | 15 | | | mg tablet | | | | | | + + + +---------+ + + | metoprolol | Take 0.5 tablets | | 0 | 03/30/20 | | | tartrate (LOPRESSOR) | (12.5 mg total) by | | | 18 | | | 25 mg tablet | mouth 2 times daily | | | | | + + + +---------+ + + | morphine (MSIR) 15 | Take 15 mg by mouth. | | 0 | | | | mg tablet | Take one tablet by | | | | | | | moth twice daily | | | | | + + + +---------+ + + | Multiple Vitamin | 1 Tablet QD ORAL | | 0 | / | | | (MULTIVITAMINS PO) | | | | 14 | | + + + +---------+ + + | nabumetone | TAKE ONE TABLET BY | | 0 | 11/08/19 | | | (RELAFEN) 750 mg | MOUTH TWO TIMES A | | | 16 | | | tablet | DAY | | | | | + + + +---------+ + + | | Take 1 tablet by | | 0 | 10/20/19 | | | norgestimate-ethinyl | mouth daily | | | 19 | | | estradiol | | | | | | | (ORTHO-CYCLEN) 0.25 | | | | | | | mg-35 mcg per tablet | | | | | | + + + +---------+ + + | ondansetron | Take 1 tablet (4 mg | | 0 | 12/09/19 | | | (ZOFRAN ODT) 4 mg | total) by mouth | | | 19 | | | disintegrating | every 6 hours as | | | | | | tablet | needed for Nausea | | | | | | | (For nausea or | | | | | | | vomiting) place on | | | | | | | the tongue. | | | | | + + + +---------+ + + | ondansetron | Take 4 mg by mouth 4 | | 0 | | | | (ZOFRAN) 4 mg tablet | times daily as | | | | | | | needed for Nausea | | | | | + + + +---------+ + + | | Take 1-2 tablets by | | 0 | 01/29/20 | | | oxyCODONE-acetaminop | mouth every 4 (four) | | | 16 | | | hen (PERCOCET) | hours as needed for | | | | | | 7.5-325 mg per | Pain. | | | | | | tablet | | | | | | + + + +---------+ + + | pantoprazole | Take 40 mg by mouth | | 0 | | | | (PROTONIX) 40 mg | | | | | | | tablet | | | | | | + + + +---------+ + + | SUMAtriptan | Take 100 mg by mouth | | 0 | 06/24/19 | | | (IMITREX) 100 mg | | | | 17 | | | tablet | | | | | | + + + +---------+ + + | SUMAtriptan | ORAL; TAKE AT ONSET | | 0 | 02/12/20 | | | (IMITREX) 50 mg | OF MIGRAINE, MAY | | | 16 | | | tablet | REPEAT IN 2 HOURS IF | | | | | | | NEEDED | | | | | + + + +---------+ + + | SUMAtriptan | Take at onset of | 12 | 0 | 02/28/20 | | | (IMITREX) 50 mg | migraine, may repeat | tablet | | 17 | | | tablet | in 2 hrs if needed | | | | | + + + +---------+ + + | topiramate | Take 1 pill twice a | | 0 | 12/29/19 | | | (TOPAMAX) 100 mg | day. | | | 16 | | | tablet | | | [...] 1 capsule by | | 0 | 09/06/19 | | | (ZONEGRAN) 100 mg | mouth at night x 1 | | | 16 | | | capsule | week, then 2 | | | | | | | capsules nightly. | | | | | + + + +---------+ + + | | Take 1 tablet by | 20 | 0 | 02/19/20 | | | amoxicillin-clavulan | mouth 2 times daily | tablet | | 19 | 9 | | ate (AUGMENTIN) | for 10 days. | | | | | | 875-125 mg per | | | | | | | tablet | | | | | | + + + +---------+ + + | meclizine | Take 25 mg by mouth | | 0 | 04/15/20 | | | (ANTIVERT) 25 mg | 3 times daily as | | | 18 | 9 | | tablet | needed | | | | | + + + +---------+ + + | PARoxetine (PAXIL) | Take 20 mg by mouth | | 0 | 04/07/20 | | | 20 mg tablet | daily | | | 18 | 9 | + + + +---------+ + + documented as of this encounter ED Notes Ed Delvalle MD - 02/18/2019 5:26 PM PDTFormatting of this note might be different from t he original. [facility] Valentina Sierra Emergency Department Encounter Note [address] [place] [id number] PCP:Irlanda Moise MD [phone] CHIEF COMPLAINT: Chief Complaint Patient presents with Otalgia Nasal Congestion ED Room: [facility]/[address] Valentina Sierra is a 33 y.o. female who presents to the Emergency Department facial pressure , and bilateral ear pain. This pain has been ongoing for the past 3 to 4 days. She denies any fevers or chills. No nausea vomiting. Has dealt with ear infection the past. Complain s of bilateral ear pain. No cough, does note some nasal congestion. No shortness of breath . No fevers or chills. 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 ibuprofen (ADVIL,MOTRIN) 800 MG tablet 1 Tablet 3 times a day PRN ORAL LORazepam (ATIVAN) 1 mg tablet Take 1 tablet (1 mg total) by mouth at bedtime as needed for Anxiety LORazepam (ATIVAN) 2 MG tablet Take 2 mg by mouth meclizine (ANTIVERT) 25 mg tablet Take 25 mg by mouth 3 times daily as needed meloxicam (MOBIC) 15 mg tablet Take once a day for pain meloxicam (MOBIC) 7.5 mg tablet Take 7.5 mg by mouth daily methocarbamol (METHOCARBAMOL) 750 mg tablet 1 Tablet every 6 hours PRN ORAL metoprolol tartrate (LOPRESSOR) 25 mg tablet Take 0.5 tablets (12.5 mg total) by mouth 2 times daily morphine (MSIR) 15 mg tablet Take 15 mg by mouth. Take one tablet by moth twice daily Multiple Vitamin (MULTIVITAMINS PO) 1 Tablet QD ORAL nabumetone (RELAFEN) 750 mg tablet TAKE ONE TABLET BY MOUTH TWO TIMES A DAY norgestimate-ethinyl estradiol (ORTHO-CYCLEN) 0.25 mg-35 mcg per tablet Take 1 tablet b y mouth daily ondansetron (ZOFRAN ODT) 4 mg disintegrating tablet Take 1 tablet (4 mg total) by mouth every 6 hours as needed for Nausea (For nausea or vomiting) place on the tongue. ondansetron (ZOFRAN) 4 mg tablet Take 4 mg by mouth 4 times daily as needed for Nausea oxyCODONE-acetaminophen (PERCOCET) 7.5-325 mg per tablet Take 1-2 tablets by mouth ever y 4 (four) hours as needed for Pain. pantoprazole (PROTONIX) 40 mg tablet Take 40 mg by mouth PARoxetine (PAXIL) 20 mg tablet Take 20 mg by mouth daily SUMAtriptan (IMITREX) 100 mg tablet Take 100 mg by mouth SUMAtriptan (IMITREX) 50 mg tablet ORAL; TAKE AT ONSET OF MIGRAINE, MAY REPEAT IN 2 BIANKA RS IF NEEDED SUMAtriptan (IMITREX) 50 mg tablet Take at onset of migraine, may repeat in 2 hrs if ne eded topiramate (TOPAMAX) 100 mg tablet Take 1 pill twice a day. topiramate (TOPAMAX) 25 mg tablet ORAL; on 03/13/15 1 tab at hs for 1 week-then increas e by 25mg per week up to 25mg in AM & 50mg at hs zonisamide (ZONEGRAN) 100 mg capsule Start 1 capsule by mouth at night x 1 week, then 2 capsules nightly. ALLERGIES Allergies Allergen Reactions Cyclobenzaprine Other (See Comments) Duloxetine Other (See Comments) FAMILY AND SOCIAL HISTORY Family History Problem Relation Age of Onset Fibromyalgia Mother Fibromyalgia Maternal Grandmother Social History Socioeconomic History Marital status: Spouse name: Not on file Number of children: Not on file Years of education: Not on file Highest education level: Not on file Tobacco Use Smoking status: Current Every Day Smoker Packs/day: 0.10 Smokeless tobacco: Never Used Substance and Sexual Activity Alcohol use: Not Currently Drug use: Yes Types: Marijuana Comment: Drug use: No REVIEW OF SYSTEMS As in history of present illness. A 10 system review was otherwise negative. PHYSICAL EXAM VITAL SIGNS: (first vital signs):Temp: 37.4 C (99.4 F) Pulse: 82 Resp: 18 SpO2: 99 % BP : 114/65 Body mass index is 23.17 kg/m. Constitutional: female patient, no acute distress sitting with daughter at bedside HEENT: Atraumatic, PERRL, Oropharynx benign. No cervical lymphadenopathy, bilateral ear e ffusions, no erythema and TM not bulging, significant facial pressure Neck: Supple with full range of motion. Respiratory: Good air movement bilaterally. Cardiovascular: Normal S1 S2 Abdomen: Soft nontender, nondistended Extremities: No deformity Skin: Warm, Dry, No rashes Neurologic: Alert & oriented. Psychiatric: Normal mood, affect and judgement. EKG 12-lead EKG shows LABS Results for orders placed or performed during the hospital encounter of 08/09/14 CBC w/ Auto Differential Result Value Ref Range WBC 4 4.3 - 10.4 1000/mm3 RBC 4.26 4.12 - 5.30 mil/mm3 HGB, External 12.8 12.4 - 15.7 g/dL HCT, External 39.1 37.7 - 47.0 % MCV 92 82 - 97 fl MCH 30 27.1 - 32.3 pg MCHC 32.7 32.0 - 36.9 g/dL RDW-CV 12.5 <=17.0 % RDW-SD 41.3 34.0 - 57.0 fL Platelet Count Plasma 176 150 - 450 1000/mm3 MPV 11.1 9.4 - 12.3 FL % Neutrophils 67.1 42.0 - 76.0 % % Lymphocytes 25.6 20.0 - 40.0 % % Monocytes 5.5 3.0 - 13.0 % % Eosinophils 1.3 0.0 - 7.0 % % Basophils 0.5 0.0 - 2.0 % Absolute Neutrophils 2.67 2.50 - 8.50 1000/mm3 Absolute Lymphocytes 1.02 1.00 - 3.80 1000/mm3 Absolute Monocytes 0.22 0.00 - 0.80 1000/mm3 Absolute Eosinophils 0.05 0.00 - 0.70 1000/mm3 Absolute Basophils 0.02 0.00 - 0.20 1000/mm3 SLIDE REVIEWED SMEAR REVIEWED Comprehensive Metabolic Panel Result Value Ref Range Sodium 139 132 - 143 mmol/L Potassium 4 3.3 - 4.9 mmol/L Cl 106 95 - 108 mmol/L CO2 28 23 - 34 mmol/L Anion Gap 5 7 - 16 Calcium 9 8.3 - 10.0 mg/dL Glucose 122 70 - 110 mg/dL BUN, Bld 9 5 - 26 mg/dL Creatinine 0.8 0.6 - 1.3 mg/dL BUN/Creatinine Ratio 11.3 7.0 - 24.0 RATIO GFR ESTIMATE 60 >=60 mL/min/1.73m2 Bilirubin, Total 0.3 <=1.2 mg/dL Protein, Total 7.2 6.6 - 8.5 g/dL Albumin 3.8 3.0 - 4.5 g/dL Alkaline Phosphatase 69 46 - 116 U/L ALT, External 31 14 - 59 U/L AST, External 19 <=38 U/L IMAGING STUDIES (X-Rays interpreted by ED Physician) ED COURSE & MEDICAL DECISION MAKING Pertinent Labs & Imaging studies were reviewed along with EMS notes and [facility] record s if applicable. (See chart for details) Medications and Allergy list reviewed. Nurses note and old records were reviewed The patient was seen and examined, Patient is a 33-year-old female who presents with facial pain and bilateral ear pain. Exam most consistent with sinusitis. Patient will be treated with Augmentin. She did not have evidence of otitis media but did have middle ear effusions. She was asked to return for any worsening symptoms. Encouraged that she follow-up with her primary care provider. Last Set of Vital Signs: Temp: 37.4 C (99.4 F) Pulse: 82 Resp: 18 SpO2: 99 % BP: 114/65 FINAL IMPRESSION ICD-10-CM ICD-9-CM 1. Sinusitis, unspecified chronicity, unspecified location J32.9 473.9 Follow-up Information Schedule an appointment as soon as possible for a visit with Irlanda Moise MD. Specialty: Internal Medicine Contact information: [address] [facility] [place] [address] [facility]. Specialty: Emergency Medicine Why: If symptoms worsen Contact information: [place] [address] Discharge Medication List as of 02/18/2019 17:48 START taking these medications Details amoxicillin-clavulanate (AUGMENTIN) 875-125 mg per tablet Take 1 tablet by mouth 2 times da jelani for 10 days.Disp-20 tablet, R-0, Normal Ed Delvalle MD 02/20/19 1225 inig, Kiran Nieves, DEBBY - 02/18 4:36 PM PDTPt reports bilateral ear pain and nasal congestion x couple days. Electron ically signed by Kiran Morales RN at 02/18/2019 4:40 PM PDTdocumented in this encounter Plan of Treatment Not on filedocumented as of this encounter Visit Diagnoses + + | Diagnosis | + + | Sinusitis, unspecified chronicity, unspecified location - Primary | + + documented in this encounter"
--- OUTSIDE RECORDS SUMMARY | ~2019-12-14 | XMS | Encounter Summary ---
Demographics + + + | Address | [address] | | | [place] [address] | + + + | Home Phone | | + + + | Preferred Language | Unknown | + + + | Marital Status | | + + + | Congregation Affiliation | Unknown | + + + | Race | Unknown | + + + | Ethnic Group | Unknown | + + + Author + + + | Author | [facility] | | | and [place] | + + + | Organization | [facility] | | | [...] Team Providers + +------+ + | Care Assembler Wire Mesh Gate Name | Role | Phone | + +------+ + | Irlanda Moise MD | PCP | | + +------+ + Encounter Details +--------+ + + + + | Date | Type | Department | Care Team | Description | +--------+ + + + + | 09/05/ | Orders Only | [facility] | | | 2016 | | [facility] | [address] | | | | | PHYSICAL MEDICINE | [facility] | | | | | [facility] RE[facility] | [address] | | | | | [address] | [place] [address] | | | | | [place], [place] | [phone] | | | | | [address] | | | | | | [phone] | | | +--------+ + + + [...] | + +--------+ + + + | FL ASPIRATION | Routin | 09/06/2015 | | Results for this | | INJECTION MAJOR | e | 2:17 PM | | procedure are in the | | JOINT LEFT | | PDT | | results section. | + +--------+ + + + documented in this encounter Results FL Asp and/or Inj Major Joint Left (09/06/2015 2:17 PM PDT) + + | Specimen | + + | | + + + + + | Impressions | Performed At | + + + | Technically successful fluoroscopically guided steroid injection of | | | the left hip. Electronically signed by Jaskaran Garduno MD on | | | 09/06/2015 3:35 PM | | + + + + + + | Narrative | Performed At | + + + | HISTORY: Joint Pain. Requires steroid injection for pain relief. | | | TECHNIQUE: Fluoroscopically guided steroid injection of the left hip. | | | Total fluoroscopy time 0.5 minutes. PROCEDURE: Informed | | | written consent was obtained and witnessed, risks to include | | | infection, pain and failed procedure. As a separate procedure | | | distinct from the imaging and intervention, a targeted physical | | | examination was performed as germane. Then, the appropriate side of | | | intervention was determined and separately labeled, antecedent to | | | imaging and intervention. As per protocol at this institution. Prior | | | imaging and clinical notes were also reviewed as contributory and | | | needed. After the patient was shielded as much is possible and | | | prepped and draped in a sterile manner, skin was anesthetized with 4 | | | cc 1% lidocaine and sodium bicarbonate. Using fluoroscopic | | | guidance a 20-gauge spinal needle was placed in the joint. 5 cc of the | | | usual concentration of 40 mg of Kenalog, Isovue 300 and 0.25 % | | | bupivacaine was injected. Images obtained revealed a good | | | intra-articular injection. Patient tolerated the procedure without | | | evidence of adversity. Discharge instructions in contact | | | information rendered. Patient to return to care of the appropriate | | | clinician. | | + + + + + | Procedure Note | + + | Ruslan Ga Conversion - 12/24/2018 9:06 PM PDT HISTORY: Joint Pain. Requires steroid | | injection for pain relief. TECHNIQUE: Fluoroscopically guided steroid injection of the | | left hip. Total fluoroscopy time 0.5 minutes. PROCEDURE: Informed written consent was | | obtained and witnessed, risks to include infection, pain and failed procedure. As a | | separate procedure distinct from the imaging and intervention, a targeted physical | | examination was performed as germane. Then, the appropriate side of intervention was | | determined and separately labeled, antecedent to imaging and intervention. As per | | protocol at this institution. Prior imaging and clinical notes were also reviewed as | | contributory and needed. After the patient was shielded as much is possible and prepped | | and draped in a sterile manner, skin was anesthetized with 4 cc 1% lidocaine and sodium | | bicarbonate. Using fluoroscopic guidance a 20-gauge spinal needle was placed in the | | joint. 5 cc of the usual concentration of 40 mg of Kenalog, Isovue 300 and 0.25 % | | bupivacaine was injected. Images obtained revealed a good intra-articular injection. | | Patient tolerated the procedure without evidence of adversity. Discharge instructions in | | contact information rendered. Patient to return to care of the appropriate clinician. | | IMPRESSION: Technically successful fluoroscopically guided steroid injection of the left | | hip. | | | |Patient tolerated the procedure without evidence of adversity. | | | |Discharge instructions in contact information rendered. Patient to return to care of the ap propriate clinician. | | | |IMPRESSION: | |Technically successful fluoroscopically guided steroid injection of the left hip. | | | | | + + documented in this encounter Visit Diagnoses Not on filedocumented in this encounter"
--- OUTSIDE RECORDS SUMMARY | ~2019-12-14 | XMS | Encounter Summary ---
Demographics + + + | Address | [address] | | | [place] [address] | + + + | Home Phone | | + + + | Preferred Language | Unknown | + + + | Marital Status | | + + + | Zoroastrian Affiliation | Unknown | + + + | Race | Unknown | + + + | Ethnic Group | Unknown | + + + Author + + + | Author | [facility] | | | and [place] | + + + | Organization | [facility] | | [...] Team Providers + +------+ + | Care Feller Hand Name | Role | Phone | + +------+ + PCP | Unavailable | + +------+ + Encounter Details +--------+ + + + + | Date | Type | Department | Care Team | Description | +--------+ + + + + | 07/24/ | Hospital | [facility] | Diana Cruz MD | | | 2010 | Encounter | [facility] | [address] | | | | | [address] [place] | [place], [place] | | | | | [place], [place] | [address] | | | | | [address] | | | | | | [phone] | | | +--------+ + + + [...] encounter Progress Notes Diana Cruz MD - 07/24/2010 4:49 PM PDTTranscription Date/Time: July 25, 2010 09:03[facility] Dictating Practitioner: DIANA CRUZ MD Patient Name: PARISH NAVARRETE Patient Date of : 1985 Visit Number: [id number] OBSERVATION NOTE DATE OF SERVICE:07/24/2010 CHIEF COMPLAINT: Coughing and abdominal discomfort. HISTORY OF PRESENT ILLNESS: This patient is a 24-year-old female, 3, para 2-0-0-2, DEL 10/31/10. She notes that upon retrospect she has had gradual worsening of a dry cough for the last 2-3 weeks. It is now productive of yellowish sputum. She has no sore throat nor feve. She has some decreased appetite with no vomiting or diarrhea. She denies ruptured membranes, vaginal bleeding, or contractions. She notes good movement. For past medical history, history, medications, review of systems, and allergies, please see records. PHYSICAL EXAMINATION: VITAL SIGNS: Blood pressure 120/57. Temperature 36.1. Pulse 101. Respirations 20. HEART: Regular rate and rhythm. LUNGS: No rales, but she does have upper airway rhonchi that clear with coughing. ABDOMEN: Soft, nontender. monitoring demonstrates reactive heart rate consistent with gestational age, with no apparent signs of labor. PELVIC: Deferred. ASSESSMENT: 1. Upper respiratory tract infection. 2. Intrauterine , undelivered at 25+ weeks' gestation. PLAN: The patient has been hydrated, states that she does feel better. She has also been given AZITHROMYCIN 500 mg. She would like to go home. DISCHARGE: 1. Disposition: Home. 2. Medications: a. PHENERGAN with CODEINE cough syrup 1 teaspoon every 6 hours as needed for cough, dispense #1 4-ounce bottle with no refills. b. AZITHROMYCIN 250 mg 1 p.o. every day for the next 4 days beginning tomorrow with no refills. 3. 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 She will also increase her daily water intake to 80-100 ounces and let me know if she does not significantly improve in the next few days. [id number] / [id number] Dictation Date/Time: July 24, 2010 06:35PM Authenticated and Edited by Diana Cruz MD On 07/26/10 4:54:46 PM IFC Signed and Approved by: DIANA CRUZ MD 07/26/2010 16:54:00 documented in this enc ounter Plan of Treatment Not on filedocumented as of this encounter Visit Diagnoses Not on filedocumented in this encounter"
--- OUTSIDE RECORDS SUMMARY | ~2019-12-14 | XMS | Encounter Summary ---
Demographics + + + | Address | [address] | | | [place] [address] | + + + | Home Phone | | + + + | Preferred Language | Unknown | + + + | Marital Status | | + + + | Mosque Affiliation | Unknown | + + + | Race | Unknown | + + + | Ethnic Group | Unknown | + + + Author + + + | Author | [facility] | | | and [place] | + + + | Organization | [facility] | | | [...] Team Providers + +------+ + | Care Jig Builder Name | Role | Phone | + +------+ + PCP | Unavailable | + +------+ + Encounter Details +--------+ + + + + | Date | Type | Department | Care Team | Description | +--------+ + + + + | 12/03/ | Hospital | [facility] | Diana Cruz MD | | | 2013 | Encounter | [facility] XRAY [address] | [address] | | | | | [address] | [place], [place] | | | | | [place], [place] | [address] | | | | | [address] | | | | | | [phone] | | | +--------+ + + + [...]
--- OUTSIDE RECORDS SUMMARY | ~2019-12-14 | XMS | Encounter Summary ---
Demographics + + + | Address | [address] | | | [place] [address] | + + + | Home Phone | | + + + | Preferred Language | Unknown | + + + | Marital Status | | + + + | Buddhist Affiliation | Unknown | + + + [...] Team Providers + +------+ + | Care Training And Development Specialist Name | Role | Phone | + +------+ + PCP | Unavailable | + +------+ + Encounter Details +--------+ + + + + | Date | Type | Department | Care Team | Description | +--------+ + + + + | 10/20/ | Hospital | [facility] | Diana Cruz MD | | | 2010 | Encounter | [facility] | [address] | | | | | DELIVERY [address] | [place] | | | | | [address] [place], [place] | [address] | | | | | [address] | | | | | | [phone] | | | +--------+ + + + [...] + + documented as of this encounter H&P Notes Diana Cruz MD - 10/20/2010 4:18 PM [facility] Dictating Practitioner: DIANA CRUZ MD Patient Name: PARISH NAVARRETE Patient Date of : 1985 Visit Number: [id number] HISTORY AND PHYSICAL DATE OF SERVICE: October 21, 2010. CHIEF COMPLAINT: Possible labor. HISTORY OF PRESENT ILLNESS: This patient is a 24-year-old female, 3, para 2-0-0-2. DEL is 10/31/10. She presents with the complaint of regular contractions. She denies rupture of membranes, vaginal bleeding, headache, fever, dysuria, or other complaints. PAST MEDICAL HISTORY: For past medical history, history, medications, review of systems, and allergies, please see records. PHYSICAL EXAMINATION: VITAL SIGNS: Blood pressure 113/73. CERVIX:Her cervix is 2 to 3 cm on admission. HEART:Heart regular rate and rhythm. LUNGS:Clear. ABDOMEN:Soft, nontender. Reassuring heart rate and regular contractions. Just prior to my checking her she had spontaneous rupture of membranes and at that time cervix was noted to be 4, 90%, and -1. Fluid is clear. Fetus is vertex. Pelvis is deemed adequate for this estimated weight of 7 1/2 pounds. ASSESSMENT: Term in labor. PLAN: Continue expectant management. [id number] / [id number] Dictation Date/Time: October 21, 2010 10:46AM [place] Date/Time: October 21, 2010 11:41AM Authenticated and Edited by Diana Cruz MD On 10/31/10 9:13:03 AM [facility] Signed and Approved by: DIANA CRUZ MD 10/31/2010 09:13:00 documented in this enc ounter Miscellaneous Notes Op Note - Diana Cruz MD - 10/20/2010 4:18 PM [facility] Dictating Practitioner: DIANA CRUZ MD Patient Name: PARISH NAVARRETE Patient Date of : 1985 Visit Number: [id number] DELIVERY NOTE: Delivery Date: October 21, 2010. This 24-year-old female is now 3, para 3. She presented in early labor. She progressed well utilizing intravenous sedation. She did not want an epidural. She rapidly became complete and brought the baby down to a position. She was prepped and draped in the usual sterile fashion. No episiotomy deemed necessary. Utilizing controlled technique, the baby's head delivered. The mouth and nasopharynx were suctioned and the remainder of the body delivered easily. The cord was doubly clamped and cut. The baby is a viable 7 pound 3 ounce male that delivered at 1845 hours. The baby had 9.9 apgars. Cord sample was obtained. The placenta delivered spontaneously and intact. Inspection demonstrated only superficial perineal abrasions, no lacerations. The uterus firmed up well. Estimated blood loss is 300 mL. The patient's vital signs remained stable. Mother and baby are stable. She tolerated the delivery well. Counts were correct by me and the nurse. [id number] / [id number] Dictation Date/Time: October 21, 2010 10:48AM [place] Date/Time: October 23, 2010 08:24AM Authenticated and Edited by Diana Cruz MD On 10/31/10 9:22:22 AM [facility] Signed and Approved by: DIANA CRUZ MD 10/31/2010 09:22:00 documented in this enc ounter Plan of Treatment Not on filedocumented as of this encounter Visit Diagnoses Not on filedocumented in this encounter"
--- OUTSIDE RECORDS SUMMARY | ~2019-12-14 | XMS | Encounter Summary ---
Demographics + + + | Address | [address] | | | [place] [address] | + + + | Home Phone | | + + + | Preferred Language | Unknown | + + + | Marital Status | | + + + | Mandaen Affiliation | Unknown | + + + [...] Team Providers + +------+ + | Care Automatic Embroidery Machine Tender Name | Role | Phone | + [...] | | | | [place], [place] | [address] | | | | | [address] | | | | | | [phone] | | | +--------+ + + + [...]
[~2019-12-14 00:02] MED LIST: CELEXA10 MG PO; GABAPENTIN600 MG PO; IMITREX100 MG PO; IMITREX20 MG PO; MORPHINE SULFAT15 MG PO; NABUMETONE750 MG PO; PERCOCET 7.5-31 EACH PO; PRILOSEC10 MG PO; TOPAMAX25 MG PO; VITAMIN D5000 UNIT PO
--- NOTE | 2019-12-16 09:51 | PR ---
[facility] [address] [address] [place] [address] Signed PP Progress Notes Datetime Report Generated by CPN: 12/16/2019 09:51 SUBJECTIVE: [id number] Pain: Within Normal Limits Nausea/Vomiting: Denies Vital Signs: [id number] Vital Signs: Reviewed; Within Normal Limits Notable Details: PP Hgb/Hct = 10.9/32.7 Abdomen/Uterus: Normal Lochia: Normal Extremities: Normal IMPRESSION/PLAN/PROCEDURES: [id number] Impression: Normal Progression Plan: Discharge Procedures: None Progress Notes: Doing well, without complaint, wants top go home. Signing Physician: Vicky Gayle MD Copies: ~ *Electronically Signed* 12/16/19 0951 VICKY GAYLE MD PATIENT NAME: PARISH VAUGHN PROGRESS NOTE DATE OF : 81 PHYSICIAN: VICKY GAYLE MD RPT #: [id number] REPORT IS CONFIDENTIAL AND NOT TO BE RELEASED WITHOUT AUTHORIZATION
== END 2019-12-16 11:20 | disposition home or self-care (01) | DRG 807 ==
LOC: FBC 12-15 00:05
PROVIDERS: ADMIT General Practice
PROC: 10E0XZZ Delivery of Products of Conception, External Approach (ICD-10-PCS; principal; 2019-12-15)
PROC: 0KQM0ZZ Repair Perineum Muscle, Open Approach (ICD-10-PCS; 2019-12-15)
PROC: 0UQMXZZ Repair Vulva, External Approach (ICD-10-PCS; 2019-12-15)
PROC: 10907ZC Drainage of Amniotic Fluid, Therapeutic from Products of Conception, Via Natural or Artificial Opening (ICD-10-PCS; 2019-12-15)
DX: O70.1 Second degree perineal laceration during delivery (principal); Z37.0 Single live birth; O71.82 Other specified trauma to perineum and vulva; Z3A.39 39 weeks gestation of pregnancy
CPT/HCPCS: 36415; 85027; A9270